=== PATIENT | female | born 2000 | race American Indian/Alaskan Native ===

== ENCOUNTER 2021-09-25 16:25 | Emergency (ER) | payer MEDICAID ==
[2021-09-25] MEDS ORDERED: SODIUM CHLORIDE 0.9% 1000 ML 1,000 ML IV ONE (21:38)
[2021-09-25] MEDS ORDERED: ONDANSETRON 4 MG/2 ML INJ IV ONE (21:38)
--- NOTE | 2021-09-25 21:41 | Emergency Department Report ---
ED General Adult HPI - General Chief complaint: Nausea/Vomiting/Diarrhea Stated complaint: N/V x1 day Time Seen by Provider: 09/25/21 21:06 Source: EMS Mode of arrival: Stretcher Limitations: No Limitations - History of Present Illness Initial comments: 21 oh -[place]el[place] female with a past medical history of hypertension and diabetes presents to the ER today with complaints of syncope nausea and vomiting. Patient was brought in by EMS. Patient states that earlier this morning when she woke up out of the bed, she noticed that she was having some pains in her leg and before she knew what she was waking up off the floor. She thinks she may have passed out. She states that this was unwitnessed. She states that after she passed out she thought she needed some air and so decided to go for walks to [place]. She states that when she was walking to [place] and when she got to [place] she started drinking a lot of water and then when she tried to eat she started with nausea and vomiting. EMS was called at the time. Her blood sugar was measured at 131 and she was brought into the ER. Patient states that while she was being driven to the ER she started with right- sided chest pain. She reports no shortness of breath. She reports no abdominal pain, diarrhea, UTI symptoms, fever or chills. She denies any lower extremity swelling. She denies any known history of heart disease. She denies any known history of PE or DVT. She is currently on her menstrual cycle. She has not been vaccinated against COVID-19. She does smoke marijuana but denies any other illicit drug use. She drinks socially. Complaint: Syncope;N/V -: This morning - Related Data Previous Rx's Medication Instructions Recorded Last Taken Type Ferrous Sulfate [Ferrous Sulfate 324 mg PO DAILY #30 09/25/21 Unknown Rx 324 MG] Ondansetron [Zofran Odt] 4 mg PO Q8HR PRN #10 tab.rapdis 09/25/21 Unknown Rx cephALEXin [Keflex] 500 mg PO Q8HR #21 cap 09/25/21 Unknown Rx Allergies Allergy/AdvReac Type Severity Reaction Status Date / Time No Known Allergies Allergy Verified 09/25/21 16:36 ED Review of Systems ROS: Stated complaint: N/V x1 day Other details as noted in HPI Constitutional: denies: chills, fever Eyes: denies: eye pain, eye discharge, vision change ENT: denies: ear pain, throat pain, dental pain, hearing loss, epistaxis, congestion Respiratory: denies: cough, shortness of breath, wheezing Cardiovascular: chest pain. denies: palpitations, dyspnea on exertion, edema, syncope, paroxysmal nocturnal dyspnea Gastrointestinal: nausea, vomiting. denies: abdominal pain, diarrhea, constipation, hematemesis, hematochezia Genitourinary: denies: urgency, dysuria, discharge, abnormal menses, dyspareunia Musculoskeletal: denies: back pain, joint swelling, arthralgia, myalgia Skin: denies: rash, lesions, change in color, change in hair/nails, pruritus Neurological: denies: headache, weakness, numbness, paresthesias, confusion, abnormal gait, vertigo Psychiatric: denies: anxiety, depression, auditory hallucinations, visual hallucinations, homicidal thoughts, suicidal thoughts Hematological/Lymphatic: denies: easy bleeding, easy bruising, swollen glands ED Past Medical Hx - Past Medical History Previous Medical History?: No - Medications Home Medications: Home Medications Medication Instructions Recorded Confirmed Last Taken Type Ferrous Sulfate [Ferrous Sulfate 324 mg PO DAILY #30 09/25/21 Unknown Rx 324 MG] Ondansetron [Zofran Odt] 4 mg PO Q8HR PRN #10 tab.rapdis 09/25/21 Unknown Rx cephALEXin [Keflex] 500 mg PO Q8HR #21 cap 09/25/21 Unknown Rx ED Physical Exam - General Limitations: No Limitations General appearance: alert, in no apparent distress - Head Head exam: Present: atraumatic, normocephalic, normal inspection - Eye Eye exam: Present: normal appearance, PERRL, EOMI Pupils: Present: normal accommodation - ENT ENT exam: Present: mucous membranes moist - Neck Neck exam: Present: normal inspection, full ROM. Absent: meningismus - Respiratory Respiratory exam: Present: normal lung sounds bilaterally. Absent: respiratory distress, wheezes, rales, rhonchi - Cardiovascular Cardiovascular Exam: Present: regular rate, normal rhythm, normal heart sounds - GI/Abdominal GI/Abdominal exam: Present: soft. Absent: distended, tenderness, guarding, rebound - Extremities Exam Extremities exam: Present: normal inspection, full ROM. Absent: pedal edema, calf tenderness - Neurological Exam Neurological exam: Present: alert, oriented X3, CN II-XII intact, normal gait - Psychiatric Psychiatric exam: Present: normal affect, normal mood - Skin Skin exam: Present: intact ED Course Vital Signs 09/25/21 16:34 Temperature 98.2 F Pulse Rate 90 Respiratory 16 Rate Blood Pressure 180/74 [Left] O2 Sat by Pulse 98 Oximetry ED Medical Decision Making - Lab Data Result diagrams: 09/25/21 21:43 09/25/21 21:43 - EKG Data -: EKG Interpreted by Al EKG shows normal: sinus rhythm Rate: normal (80) - EKG Data Interpretation: normal EKG - Radiology Data Radiology results: report reviewed Patient: GERALD BAEZ MR#: [id number] : 2000 Acct:[id number] Age/Sex: 21 / F ADM Date: 09/25/21 Loc: ED Attending Dr: Ordering Physician: ELAINA GRISSOM Date of Service: 09/25/21 Procedure(s): XR chest routine 2V Accession Number(s): [id number] cc: ELAINA GRISSOM Fluoro Time In Minutes: CHEST 2 VIEWS INDICATION / CLINICAL INFORMATION: cHEST PAIN. COMPARISON: None available. FINDINGS: SUPPORT DEVICES: None. HEART / MEDIASTINUM: No significant abnormality. LUNGS / PLEURA: No significant pulmonary or pleural abnormality. No pneumothorax. ADDITIONAL FINDINGS: No significant additional findings. IMPRESSION: 1. No active cardiopulmonary disease. Signer Name: Dorian Ingram II, MD Signed: 09/25/2021 11:19 PM Workstation Name: [id number] Transcribed By: MOHAMUD Dictated By: DORIAN INGRAM II, MD Electronically Authenticated By: DORIAN INGRAM II, MD Signed Date/Time: 09/25/212318 DD/ 18 TD/TT: - Medical Decision Making All labs reviewed --CBC shows that patient is anemic and has a hemoglobin of 9.5 and hematocrit of 29.5, CMP unremarkable, hCG negative and urinalysis normal. Troponin was also normal. Her EKG also showed normal sinus rhythm with a heart rate of 80 without any acute ischemic changes/STEMI or significant dysrhythmia. Chest x-ray is normal. Patient currently resting comfortably on the recliner. She is not in any acute pain or respiratory distress. She is not toxic or ill-appearing. She is neurologically intact her gait is normal. exam, diagnostic testing and current condition does not suggest that this patient is having acute MO, significant arrhythmia, unstable angina, stroke/TIA, significant vascular events, PE (perc 0), sepsis or other significant pathology that would warrant further testing, continued ED treatment, admission or cardiology or other specialist consultation at this time. Vital signs have been stable. Discussed all results with patient. She will be started on iron supplements to help with her anemia and she was discharged home with medication for nausea. Recommend that she continue to increase her fluid intake and follow-up closely with her PCP. Patient was stable at time of discharge. Critical care attestation.: If time is entered above; I have spent that time in minutes in the direct care of this critically ill patient, excluding procedure time. ED Disposition Clinical Impression: Anemia, UTI (urinary tract infection), Syncope, Nausea and vomiting Disposition: 01 HOME / SELF CARE / HOMELESS Is pt being admited?: No Does the pt Need Aspirin: No Condition: Stable Instructions: Nausea and Vomiting, Adult, [id number], Urinary Tract Infection, Adult, Syncope, [id number], Syncope (ED) Additional Instructions: Recommend that you take the ferrous sulfate which is the iron supplement to help your anemia. While she take the drug I recommend that you drink lots of water and increase your fiber intake as it can cause constipation. Take the Keflex as prescribed to help with your UTI. Take the Zofran as needed to help with nausea and vomiting. I do recommend that you follow-up closely with your primary care doctor this coming week. Return to the ER if at any point your symptoms worsens or changes in any way. Prescriptions: Ferrous Sulfate [Ferrous Sulfate 324 MG] 324 mg PO DAILY #30 cephALEXin [Keflex] 500 mg PO Q8HR #21 cap Ondansetron [Zofran Odt] 4 mg PO Q8HR PRN #10 tab.rapdis PRN Reason: nausea or vomiting Referrals: EMILE SMITH MD [Staff Physician] - 3-5 Days Time of Disposition: 23:39
[2021-09-25 21:53] LABS: Hematocrit 29.5 % (30.3-42.9); Hemoglobin 9.3 gm/dl (10.1-14.3); Mean Corpuscular HGB Conc 32 % (30-34); Platelet Count 447 K/mm3 (140-440); Red Blood Count 4.25 M/mm3 (3.65-5.03)
[2021-09-25 22:06] LABS: Mean Corpuscular Volume 69 fl (79-97)
[2021-09-25 22:18] LABS: Alanine Aminotransferase 9 units/L (7-56); Albumin 3.5 g/dL (3.9-5); BUN/Creatinine Ratio 12; Blood Urea Nitrogen 11 mg/dL (7-17); Calcium 8.5 mg/dL (8.4-10.2); Hemolysis Index 2
[2021-09-25 23:05] LABS: Monocytes % (Manual) 0 % (0.0-7.3); Total Cells Counted 100
[2021-09-25 23:06] LABS: Basophils % (Manual) 0 % (0.0-1.8); Hypochromasia 2+
[2021-09-25 23:07] LABS: Ovalocytes 1+; Platelet Estimate Consistent w Auto
--- NOTE | 2021-09-25 23:23 | XRay Report ---
CHEST 2 VIEWS INDICATION / CLINICAL INFORMATION: cHEST PAIN. COMPARISON: None available. FINDINGS: SUPPORT DEVICES: None. HEART / MEDIASTINUM: No significant abnormality. LUNGS / PLEURA: No significant pulmonary or pleural abnormality. No pneumothorax. ADDITIONAL FINDINGS: No significant additional findings. IMPRESSION: 1. No active cardiopulmonary disease. Signer Name: Miguel Ángel Ovalles II, MD Signed: 09/25/2021 11:19 PM Workstation Name: [id number]
[2021-09-25 23:33] LABS: Bacteria,Urine 3+ /HPF (Negative); Bilirubin,Urine NEG (Negative); Blood,Urine LG (Negative); Color,Urine Red (Yellow); Protein,Urine >500 mg/dL (Negative); RBC,Urine > 182.0 /HPF (0.0-6.0); Urobilinogen,Urine < 2.0 mg/dL (<2.0)
[2021-09-25] MEDS: HYDROcodone/ACETAMINOPHEN 5-325 MG TAB PO ONE ×2 (23:35→23:40)
[2021-09-25] MEDS ORDERED: ACETAMINOPHEN 500 MG TAB PO ONE (23:39)
[2021-09-25] MEDS ORDERED: IBUPROFEN 600 MG TAB PO ONE (23:39)
[2021-09-26 04:50] VITALS: BP 150/76
--- NOTE | 2021-09-26 09:03 | Electrocardiograph Report ---
[facility] Test Date: 2021-09-25 Test Time: 22:07:00 Pat Name: GERALD BAEZ Department: Room: Gender: F Satellite Specialist: RUDI : 2000 Requested By: ELAINA GRISSOM Order Number: [id number] Reading MD: Gregory Lynn Measurements Intervals [place] Rate: 80 P: 33 [place]: 129 QRS: 27 QRSD: 83 T: 19 QT: 388 QTc: 447 Interpretive Statements Sinus rhythm No previous ECG available for comparison Electronically Signed On 09-26-2021 9:03:39 EST by Gregory Lynn
== END 2021-09-26 02:34 | disposition home or self-care (01) ==
LOC: ED 16:25
DX: D64.9 Anemia, unspecified (principal); N39.0 Urinary tract infection, site not specified; R55 Syncope and collapse; R11.2 Nausea with vomiting, unspecified; I10 Essential (primary) hypertension; E11.9 Type 2 diabetes mellitus without complications; Z79.899 Other long term (current) drug therapy
CPT/HCPCS: 36415; 71046; 80053; 81001; 83735; 84484; 84703; 85007; 85025; 87086; 93005; 93010; 96361; 96374; 99284; J2405; J7030; Q0162